=== PATIENT | female | born 1930 | race Caucasian/White ===

== ENCOUNTER 2019-04-03 09:55 | Inpatient (IN) ==
[2019-04-03 10:50] LABS: Basophils # (auto) 0.03 K/uL (0-0.2); Basophils % (auto) 0.5 %; Eosinophils # (auto) 0.04 K/uL (0-0.5); Eosinophils % (auto) 0.7 %; Hemoglobin 12.1 g/dL (12.0-16.0); Immature Granulocytes # (auto) 0.01 K/uL (0.00-0.02); Immature Granulocytes % (auto) 0.2 %; Lymphocytes # (auto) 1.27 K/uL (1.2-3.4); Mean Corpuscular Hemoglobin 30.8 pg (25-34); Mean Corpuscular Hgb Conc 32.7 g/dL (32-36); Mean Corpuscular Volume 94.1 fL (80-100); Mean Platelet Volume 11.7 fL (7.4-10.4); Monocytes # (auto) 0.38 K/uL (0.11-0.59); Monocytes % (auto) 6.9 %; Neutrophils % (auto) 68.7 %; Platelet Count 199 K/uL (130-400); RDW Coefficient of Variation 13.7 % (11.5-14.5); RDW Standard Deviation 47.7 fL (36.4-46.3); Red Blood Count 3.93 M/uL (4.2-5.4); White Blood Count 5.53 K/uL (4.8-10.8)
--- NOTE | 2019-04-03 10:53 | XRay Report ---
SINGLE VIEW CHEST CLINICAL HISTORY: GI bleeding. FINDINGS: An AP, portable, upright chest radiograph is compared to study dated 11/16/2010. The cardiom ediastinal silhouette is unremarkable. The lungs and pleural spaces are clear. No pneumothorax is see n. The skeletal structures are osteopenic. The bony thorax is grossly intact. Calcific tendinopathy i s noted in the left shoulder. Degenerative change is seen throughout the thoracic spine. IMPRESSION: No active disease in the chest. Electronically signed by: Travon Garcia M.D. 04/03/2019 10:52 AM
--- NOTE | 2019-04-03 10:55 | XRay Report ---
XR KUB/Abdomen 1 view CLINICAL HISTORY: Gastrointestinal hemorrhage COMPARISON STUDY: No previous studies for comparison. FINDINGS: There is no pathologic bowel dilatation. There are advanced degenerative changes present wi thin the lumbar spine. There are postsurgical changes of a total right hip arthroplasty. Central pelv ic calcifications are nonspecific likely reflecting calcifications within uterine fibroids. There are radiopaque densities projecting over the iliac crests which are likely located within the extra abdo nicol soft tissues. IMPRESSION: No evidence of pathologic bowel dilatation. Electronically signed by: Beau Aldridge M.D. 04/03/2019 10:53 AM
[2019-04-03 11:00] LABS: INR 1.1 (0.9-1.1); Partial Thromboplastin Ratio 0.9; Partial Thromboplastin Time 23.1 Seconds (21.0-31.0); Prothrombin Time 11.2 Seconds (9.0-12.0)
[2019-04-03 11:09] LABS: Alanine Aminotransferase 30 U/L (12-78); Albumin Level 3.6 gm/dl (3.4-5.0); Aspartate Aminotransferase 27 U/L (15-37); BUN Creatinine Ratio 22.4 (10-20); Blood Urea Nitrogen 16 mg/dl (7-18); Calcium 8.5 mg/dl (8.5-10.1); Carbon Dioxide 25 mmol/L (21-32); Chloride 110 mmol/L (98-107); Creatinine Clr Calc Pharmacy 55.3 ml/min; Est GFR (African American) 87.9; Est GFR (Non-African American) 75.8; Glucose 113 mg/dl (70-99); Lipase 110 U/L (73-393); Sodium 143 mmol/L (136-145)
[2019-04-03 11:14] LABS: Albumin Globulin Ratio 1.1 (0.9-2); Alkaline Phosphatase 56 U/L (45-117); Bilirubin,Total 0.5 mg/dl (0.2-1); Globulin 3.4 gm/dl (2.5-4.0); Troponin I < 0.015 ng/ml (0-0.045)
[2019-04-03] MEDS ORDERED: SODIUM CHLORIDE 0.9% 1000ML 1,000 ML IV SCH (11:30)
[2019-04-03] MEDS ORDERED: ONDANSETRON INJ 2 MG/ML 2 ML VIAL IV PRN (11:40)
[2019-04-03] MEDS ORDERED: ACETAMINOPHEN 325 MG TAB PO PRN (11:40)
--- NOTE | 2019-04-03 12:21 | History & Physical Report ---
Date of Service April 03, 2019 Assessment & Plan (1) Rectal bleed: Pt is 88 y/o F with PMH HTN, dyslipidemia, GERD, depression, obesity, chronic back pain, presented with complaint red bloody diarrhea x 7 episodes since last night. +sweats. Denies abdominal pain. Pt with no hx colonoscopy. In ER afebrile, P: 65, R: 18, BP: 137/75, 99% on RA. No leukocytosis, H/H: 12/37. KUB: No evidence of pathologic bowel dilatation. -Monitor -Stool culture, C-diff pending -Gentle IVF -Type and cross and hold -Monitor H&H -NPO -Hold aspirin -CBC, BMP in am -GI consult (2) HTN (hypertension): Stable -Hold lisinopril at this time (3) Dyslipidemia: -Hold simvastatin (4) Depression: -Hold duloxetine DVT Prophylaxis -SCDs DNR/DNI as per discussion with pt Follows with Dr Hartman for routine care Pt was seen and care coordinated with Dr Russo. See addendum History of Present Illness Chief Complaint: rectal bleeding Primary Care Provider: Jaimee Hartman MD Pt is 88 y/o F with PMH HTN, dyslipidemia, GERD, depression, obesity, chronic back pain, presented to ER with complaint of rectal bleeding. Patient states last night had onset of red bloody diarrhea x7 times. Reports abdominal cramping last night but denies any abdominal pain. Denies rectal pain. Denies hx constipation. Reports decreased appetite the past 3 days. Yesterday with some diaphoresis. Denies dizziness, syncope, CP, SOB. Denies history rectal bleeding in past. Denies history of colonoscopy in past. Patient reports is been taking 2 baby aspirin daily instead of 1 baby aspirin as she thought to would be better than one tablet. Denies other NSAID use. Denies fever, N/V, JONES, dizziness, syncope, vision changes, neck pain, CP, SOB, orthopnea, palpitations, cough, sore throat, choking, otalgia, rhinorrhea, paresthesias, weakness, extremity weakness, extremity edema, rashes, urinary symptoms. Denies recent falls. Denies recent travel. Allergies Allergy/AdvReac Type Severity Reaction Status Date / Time No Known Allergies Allergy Unverified 04/03/19 11:14 Home Medications Home Medications Medication Instructions Recorded Confirmed Type aspirin 81 mg PO DAILY 04/03/19 04/03/19 History duloxetine 20 mg PO DAILY 04/03/19 04/03/19 History lisinopril [Zestril] 20 mg PO QAM 04/03/19 04/03/19 History oxycodone-acetaminophen 1 tab PO HS PRN 04/03/19 04/03/19 History simvastatin 20 mg PO PM 04/03/19 04/03/19 History Past Med/Surg History Medical History GERD (gastroesophageal reflux disease) (Chronic) Obesity (Chronic) Chronic back pain (Chronic) Depression (Chronic) Dyslipidemia (Chronic) HTN (hypertension) (Chronic) Surgical History History of right hip replacement (Chronic) Family History Other Diabetes Social History Preferred Language: Luxembourgish Communication Ability: Effective Weight Count Operator Required: No Beliefs That Will Affect Care: None Current Living Situation: Alone Other Information That Helps Us Care for You: No Feels Safe at Home: Yes Safety Concerns: Feels Safe At This Time Smoking Status: Former smoker Do You Dip or Chew Tobacco: No ; Second Hand Exposure: No ; Tobacco Cessation Education Requested by Patient: No Hx Alcohol Use: No Hx Substance Use: No Review of Systems Review of Systems: All systems reviewed & are unremarkable except as noted in HPI & below Physical Exam Physical Exam: General: no distress, obese Head: normocephalic, atraumatic Eyes: PERRL, EOM's intact, conjunctiva non-injected, anicteric ENT: normal inspection external ears, nose, mucous membranes moist Neck: supple, trachea midline Lungs: clear, no respiratory distress, no wheezing/rhonchi/rales CV: RRR, no murmur, no pretibial edema Abd: normal BS, soft, non-tender Ext: no cyanosis, no calf tenderness Neuro: A&O x 3, no focal deficits noted, pleasant, normal affect Skin: warm, dry Results & Data Vital Signs (Past 12 Hours) Vital Signs Temp Pulse Resp BP Pulse Ox 04/03/19 12:00 79 18 148/81 H 04/03/19 11:31 73 24 134/60 96 04/03/19 11:01 65 20 128/70 96 04/03/19 10:39 66 94 04/03/19 09:57 36.6 C 65 18 137/75 99 04/03/19 09:56 63 19 137/75 94 Laboratory Results Short CBC 04/03/19 Range/Units 10:36 WBC 5.53 (4.8-10.8) K/uL Hgb 12.1 (12.0-16.0) g/dL Hct 37.0 (37-47) % Plt Count 199 (130-400) K/uL BMP 04/03/19 10:36 Sodium 143 Potassium 4.0 Chloride 110 H Carbon Dioxide 25 BUN 16 Creatinine 0.72 Glucose 113 H Calcium 8.5 Cardiac Enzymes 04/03/19 Range/Units 10:36 Troponin I < 0.015 (0-0.045) ng/ml Liver Function 04/03/19 Range/Units 10:36 Total Bilirubin 0.5 (0.2-1) mg/dl AST 27 (15-37) U/L ALT 30 (12-78) U/L Alkaline Phosphatase 56 (45-117) U/L Albumin 3.6 (3.4-5.0) gm/dl Diagnostic Findings CXR: IMPRESSION: No active disease in the chest. KUB XRAY: IMPRESSION: No evidence of pathologic bowel dilatation. Code Status & VTE Plan VTE Prophylaxis Plan VTE Prophylaxis will be ordered: Yes Supervising Physician Co-Signing Physician Notes I, Dr. Jason Russo, have seen and examined the patient with physician portfolio assistant and would like to comment that This is a 88 year old female who was sent to the ED by primary care doctor Dr. Hartman because of reports of blood diarrhea that started on 04/02/19 GASTROINTESTINAL BLEED -on admission Hgb of 12.1, there are no other recent outpatient or inpatient Hgb in comparison -give IV fluids, trend hemoglobin, active type and screen -send fecal occult blood, stool culture, c.difficile test with next bowel movements -hold home medications -keep NPO for now, request gastroenterology consult Patient discussed with attending physician of code status is DO NOT RESCUCITATE, DO NOT INTUBATE Patient denies of currently with a spouse or living biological family members. She reports that she has friends who can help her make medical decisions if needed such as Cristobal Chavarria ([phone]) Agree with other health issues as documented by physician portfolio assistant Physical Exam General/neuro: no acute distress, verbal, speaks in full sentences, alert and oriented, cooperative HEENT: normal external exam Eyes: extraocular movements intact Lungs: clear to auscultation, no wheezing Heart: regular rate, regular rhythm Abdomen-soft, nontender, positive bowel sound Extremities: no edema
[2019-04-03] MEDS ORDERED: SODIUM CHLORIDE 0.9% 250 ML IV PRN (13:16)
--- NOTE | 2019-04-03 13:29 | Gastrointestinal Consultation ---
Date of Consultation April 03, 2019 Assessment & Plan (1) GERD (gastroesophageal reflux disease): Ms. Leatha Perdomo is an 88 yr old female with black/red diarrhea, minimal abdominal pain, with a hx of GERD and aspirin use (usually 162mg/day). Differentials considered include UGI bleed from ulcers, gastritis, esophagitis, LGI bleed from ischemic colitis, diverticular disease and/or hemorrhoids (seen on exam). 1. Clear liquids po. 2. Stool for culture, C-diff, O&P. Attg add: I interviewed and examined pt, reviewed chart and labs. Pt with abrupt onset rectal bleeding without abd pain that appears to be tapering off. Her hgb is stable. Suspect ischemic colitis; she does not need abx, and does not want to pursue endoscopic w/u. Diet as tolerated, follow hgb daily and plan for d/c if hgb stable x 48 hours. Please call with questions, will sign off. Present on Admission?: Yes (2) Rectal bleed: Present on Admission?: Yes History of Present Illness Reason for Consultation: Bloody Diarrhea Requesting Physician: Dr. Russo Attending Physician: Jason Russo MD History of Present Illness Ms. Leatha Perdomo is an 88 yr old female pt of Dr. Hartman with a hx of HTN, hyperlipidemia, depression who presented to the ED today for blood diarrhea for which GI is consulted. She hasn't felt well for about a year, decreased appetite, sad due to the loss of her who 4 yrs ago, "living alone." She lost about 10lbs in the past 4 months. Yesterday, "out of the blue," bloody diarrhea began. When asked, she says the BM is black but the toilet bowel if "full of red," and there was red blood on the toilet paper too. With the bloody diarrhea, she has mild cramping but no significant abdominal pain. She takes two 81mg ASA/day. She reports about 6-8 of these BMs yesterday. This morning, "it felt like it (a BM) but nothing came out." She reports that some of the diarrhea was, Black and runny." She had a lot of sweating with these BMs but denies any nausea, vomitin g, lightheadedness, dizziness, CP or feeling faint. She lives alone. No children ("lost a little one"), and does not go to any social functions. She denies any sick contacts but sounds as though she has very little contact with other people. She does had a cat and the man who cuts her grass will feed the cat while she is here. She tells me that she would like us to,"stop the bleeding so I can go home." On exam, abdomen is soft, non tender, rectal exam with external hemorrhoids, brown stool with bright red blood in the rectal vault. On arrival, CXR, ABD x-ray normal. WBC 5, Hb 12.1, Hct 37. INR 1.1. Na 143, K 4, BUN 16, Cr 0.72. She has not had further BMs since arrival. She is awake, alert, oriented, able to ambulate to the bathroom independently. Of note, she tells me that she has, "bad reflux," that she, "lives on Tums," but she "does not want" EGD and colonoscopy. Allergies Allergy/AdvReac Type Severity Reaction Status Date / Time No Known Allergies Allergy Unverified 04/03/19 11:14 Home Medications Home Medications Medication Instructions Recorded Confirmed Type aspirin 81 mg PO DAILY 04/03/19 04/03/19 History duloxetine 20 mg PO DAILY 04/03/19 04/03/19 History lisinopril [Zestril] 20 mg PO QAM 04/03/19 04/03/19 History oxycodone-acetaminophen 1 tab PO HS PRN 04/03/19 04/03/19 History simvastatin 20 mg PO PM 04/03/19 04/03/19 History Patient History Medical History GERD (gastroesophageal reflux disease) (Chronic) Obesity (Chronic) Chronic back pain (Chronic) Depression (Chronic) Dyslipidemia (Chronic) HTN (hypertension) (Chronic) Surgical History History of right hip replacement (Chronic) Family History Other Diabetes Social History Preferred Language: Gibraltarian Communication Ability: Effective Welfare Centre Manager Required: No Beliefs That Will Affect Care: None Current Living Situation: Alone Other Information That Helps Us Care for You: No Feels Safe at Home: Yes Safety Concerns: Feels Safe At This Time Smoking Status: Former smoker Do You Dip or Chew Tobacco: No ; Second Hand Exposure: No ; Tobacco Cessation Education Requested by Patient: No Hx Alcohol Use: No Hx Substance Use: No Review of Systems Review of Systems: ROS: Gen: Denies weakness, fevers, weight loss Eyes: No eye redness, or pain, no recent vision changes Resp: No SOB, no cough Cardio: No palpitations/irregular beats, no chest pain GI: + mild abdominal cramping, +bloody diarrhea, no nausea/vomiting : Denies pain on urination Skin: No jaundice, itching or new rashes Physical Exam Constitutional: WD/WN, vitals as above Eyes: PERRL, conjunctivae normal, anicteric sclerae ENMT: external ear and nose normal, oropharynx normal Neck: trachea midline, no thyromegaly Respiratory: normal respiratory effort, lungs clear to auscultation Cardiovascular: RRR, no murmur, no edema Gastrointestinal (Abdomen): normal bowel sounds, soft, nontender, no hepatosplenomegaly Rectal exam with external hemorrhoids, there was brown loose stool with bright red blood in the rectal vault. Skin: no rashes, warm and dry Neurologic: PERRL, EOMI, accommodation nl, no face palsy, no dysarthria Psychiatric: A+Ox3, euthymic affect Lymphatic: no cervical or axillary lymphadenopathy Results & Data Vital Signs (Past 12 Hours) Vital Signs Temp Pulse Resp BP Pulse Ox 04/03/19 12:30 81 20 132/76 97 04/03/19 12:00 79 18 148/81 H 04/03/19 11:31 73 24 134/60 96 04/03/19 11:01 65 20 128/70 96 04/03/19 10:39 66 94 04/03/19 09:57 36.6 C 65 18 137/75 99 04/03/19 09:56 63 19 137/75 94 Laboratory Results See HPI Diagnostic Findings CXR and abd X-ray normal.
[2019-04-03] MEDS ORDERED: PNEUMOCOCCAL ADMINISTRATION CHARGE ONE (15:15)
[2019-04-03] MEDS ORDERED: INFLUENZA VACCINE HIGH DOSE 65+ 0.5 ML SYR IM ONE (15:15)
[2019-04-03] MEDS ORDERED: PNEUMOCOCCAL POLYSACCHARIDES 25 MCG/0.5 ML VIAL/SYR IM ONE (15:15)
[2019-04-03] MEDS ORDERED: INFLUENZA ADMINISTRATION CHARGE ONE (15:15)
--- NOTE | 2019-04-03 15:15 | Emergency Department Note ---
Entered by Piter Rubio acting as a scribe for History of Present Illness General Chief complaint: Rectal Bleed Source: patient History of Present Illness Provider complaint: Rectal bleed Onset (ago): day(s) 1 Location: buttocks Pain Consistency: + constant Relieved By: + none Exacerbated By: + none Associated symptoms: + denies other symptoms (Abdominal pain); no nausea/vomiting The patient is an 88 year old female who presents to the Emergency Room with complaints of constant rectal bleeding that started yesterday. The patient states the blood is bright red and has been present in every bowel movement since the onset. The patient saw her PCP this morning and was sent here for a further work up. The patient did not have a rectal exam done at her PCP's office. The patient has never had a colonoscopy nor has she ever had a blood transfusion. The patient is not on any blood thinners. She denies any abdominal pain, nausea, or vomiting. Home Medications Home Medications Medication Instructions Recorded Confirmed Type aspirin 81 mg PO DAILY 04/03/19 04/03/19 History duloxetine 20 mg PO DAILY 04/03/19 04/03/19 History lisinopril [Zestril] 20 mg PO QAM 04/03/19 04/03/19 History oxycodone-acetaminophen 1 tab PO HS PRN 04/03/19 04/03/19 History simvastatin 20 mg PO PM 04/03/19 04/03/19 History Allergies Allergy/AdvReac Type Severity Reaction Status Date / Time No Known Allergies Allergy Unverified 04/03/19 11:14 Past Med/Surg History Medical History GERD (gastroesophageal reflux disease) (Chronic) Obesity (Chronic) Chronic back pain (Chronic) Depression (Chronic) Dyslipidemia (Chronic) HTN (hypertension) (Chronic) Surgical History History of right hip replacement (Chronic) Family History Other Diabetes Social History Preferred Language: Spanish Communication Ability: Effective 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 and A total of 10 systems reviewed and were otherwise negative Physical Exam Vital Signs Vital Signs - 24 hr 04/03/19 09:56 04/03/19 09:57 04/03/19 10:39 Temperature 36.6 C Temperature Source Oral Sepsis Recent Fever Within 48 Hours No Sepsis New/Unexplained Change in Mental Status No Sepsis Action Taken by Nursing No Action Required Pulse Rate 63 65 66 Pulse Rate from SpO2 Sensor 61 Pulse Rhythm Regular Respiratory Rate 19 18 Respiratory Effort / Characteristics Non-Labored Spontaneous Respiratory Depth Normal Respiratory Pattern Regular Blood Pressure 137/75 137/75 Blood Pressure Mean 95 95 Blood Pressure Position Sitting Pulse Oximetry 94 99 94 Oxygen Delivery Method Room Air Room Air 04/03/19 11:01 04/03/19 11:31 04/03/19 12:00 Temperature Temperature Source Sepsis Recent Fever Within 48 Hours Sepsis New/Unexplained Change in Mental Status Sepsis Action Taken by Nursing Pulse Rate 65 73 79 Pulse Rate from SpO2 Sensor 66 72 Pulse Rhythm Respiratory Rate 20 24 18 Respiratory Effort / Characteristics Respiratory Depth Respiratory Pattern Blood Pressure 128/70 134/60 148/81 H Blood Pressure Mean 89 84 103 Blood Pressure Position Pulse Oximetry 96 96 Oxygen Delivery Method GENERAL: Patient is awake, alert, and in no acute distress.Patient is resting comfortably and showing no signs of anxiety EYES: The conjunctivae are clear. The pupils are round and reactive. EARS, NOSE, MOUTH AND THROAT: The nose is without any evidence of any deformity. Mucous membranes are moist.Tongue is midline NECK: The neck is nontender and supple. RESPIRATORY: Normal respiratory effort is noted. There is no evidence of wheezing rhonchi or rales to auscultation. CARDIOVASCULAR: Regular rate and rhythm noted. There no murmurs rubs or gallops normal S1 normal S2 GASTROINTESTINAL: The abdomen is soft. Bowel sounds are present in all quadrants. Abdomen is nontender. RECTAL: Gross blood noted. PELVIS: The Pelvis is stable. No tenderness to palpation is noted. MUSCULOSKELETAL/EXTREMITIES: There is no evidence of gross deformity. Full range of motion is noted in the hips and shoulders. SKIN: There is no obvious evidence of any rash. There are no petechiae, pallor or cyanosis noted. Trace pedal edema bilaterally. NEUROLOGIC: Patient is awake alert and oriented x3. Course 1024: Past medical records reviewed. The patient was evaluated in room B12B, and a complete history and physical examination were performed. 1115: I updated the patient on results and we discussed the treatment plan. She agreed with the plan. 1123: [facility] the patient's case. He will be accepting the patient for further evaluation. Consultations Consultation #1: I [facility] the patient's case. He will be accepting the patient for further evaluation. Time: 11:23 Administered Medications Discontinued Medications Sodium Chloride (Nss 1000ml) 1,000 mls @ 80 mls/hr IV .[id number] Stop: 05/03/19 11:29 Last Infusion: 04/03/19 17:53 Dose: 0 mls/hr Documented by: [id number] Admin: 04/03/19 14:09 Dose: 80 mls/hr Documented by: [id number] Medical Decision Making Differential Diagnosis Differential: Diverticulitis, AVM, Coagulopathy, Colitis, Malignancy, Upper GI bleed, Fissure, Hemorrhoids, amongst other pathologies entertained. Medical Records Attestation: I reviewed the patient's medical records. Home Medications Current Medication List: was personally reviewed by me Laboratory Data Attestation: I reviewed the patient's lab results. Result diagrams: 04/04/19 05:42 04/04/19 00:46 Lab Results 04/03/19 04/03/19 04/03/19 Range/Units 10:36 10:36 10:36 WBC 5.53 (4.8-10.8) K/uL RBC 3.93 L (4.2-5.4) M/uL Hgb 12.1 (12.0-16.0) g/dL Hct 37.0 (37-47) % MCV 94.1 (80-100) fL MCH 30.8 (25-34) pg MCHC 32.7 (32-36) g/dL RDW Std Deviation 47.7 H (36.4-46.3) fL RDW Coeff of Aruna 13.7 (11.5-14.5) % Plt Count 199 (130-400) K/uL MPV 11.7 H (7.4-10.4) fL Immature Gran % (Auto) 0.2 % Neut % (Auto) 68.7 % Lymph % (Auto) 23.0 % [place] % (Auto) 6.9 % Eos % (Auto) 0.7 % Baso % (Auto) 0.5 % Immature Gran # (Auto) 0.01 (0.00-0.02) K/uL Neut # (Auto) 3.80 (1.4-6.5) K/uL Lymph # (Auto) 1.27 (1.2-3.4) K/uL [place] # (Auto) 0.38 (0.11-0.59) K/uL Eos # (Auto) 0.04 (0-0.5) K/uL Baso # (Auto) 0.03 (0-0.2) K/uL PT 11.2 (9.0-12.0) Seconds INR 1.1 (0.9-1.1) APTT 23.1 (21.0-31.0) Seconds PTT Ratio 0.9 Sodium 143 (136-145) mmol/L Potassium 4.0 (3.5-5.1) mmol/L Chloride 110 H (98-107) mmol/L Carbon Dioxide 25 (21-32) mmol/L Anion Gap 8.0 (3-11) BUN 16 (7-18) mg/dl Creatinine 0.72 (0.6-1.2) mg/dl Est Cr Clr Drug Dosing 55.3 ml/min Est GFR ( Amer) 87.9 Est GFR (Non-Af Amer) 75.8 BUN/Creatinine Ratio 22.4 H (10-20) Glucose 113 H (70-99) mg/dl Calcium 8.5 (8.5-10.1) mg/dl Total Bilirubin 0.5 (0.2-1) mg/dl AST 27 (15-37) U/L ALT 30 (12-78) U/L Alkaline Phosphatase 56 (45-117) U/L Troponin I < 0.015 (0-0.045) ng/ml Total Protein 7.0 (6.4-8.2) gm/dl Albumin 3.6 (3.4-5.0) gm/dl Globulin 3.4 (2.5-4.0) gm/dl Albumin/Globulin Ratio 1.1 (0.9-2) Lipase 110 (73-393) U/L Blood Type Antibody Screen Crossmatch 04/03/19 Range/Units 10:36 WBC (4.8-10.8) K/uL RBC (4.2-5.4) M/uL Hgb (12.0-16.0) g/dL Hct (37-47) % MCV (80-100) fL MCH (25-34) pg MCHC (32-36) g/dL RDW Std Deviation (36.4-46.3) fL RDW Coeff of Aruna (11.5-14.5) % Plt Count (130-400) K/uL MPV (7.4-10.4) fL Immature Gran % (Auto) % Neut % (Auto) % Lymph % (Auto) % [place] % (Auto) % Eos % (Auto) % Baso % (Auto) % Immature Gran # (Auto) (0.00-0.02) K/uL Neut # (Auto) (1.4-6.5) K/uL Lymph # (Auto) (1.2-3.4) K/uL [place] # (Auto) (0.11-0.59) K/uL Eos # (Auto) (0-0.5) K/uL Baso # (Auto) (0-0.2) K/uL PT (9.0-12.0) Seconds INR (0.9-1.1) APTT (21.0-31.0) Seconds PTT Ratio Sodium (136-145) mmol/L Potassium (3.5-5.1) mmol/L Chloride (98-107) mmol/L Carbon Dioxide (21-32) mmol/L Anion Gap (3-11) BUN (7-18) mg/dl Creatinine (0.6-1.2) mg/dl Est Cr Clr Drug Dosing ml/min Est GFR ( Amer) Est GFR (Non-Af Amer) BUN/Creatinine Ratio (10-20) Glucose (70-99) mg/dl Calcium (8.5-10.1) mg/dl Total Bilirubin (0.2-1) mg/dl AST (15-37) U/L ALT (12-78) U/L Alkaline Phosphatase (45-117) U/L Troponin I (0-0.045) ng/ml Total Protein (6.4-8.2) gm/dl Albumin (3.4-5.0) gm/dl Globulin (2.5-4.0) gm/dl Albumin/Globulin Ratio (0.9-2) Lipase (73-393) U/L Blood Type A Positive Antibody Screen NEGATIVE Crossmatch See Detail Imaging Data Radiologist's Impression: Radiology results as stated below per my review and the radiologist's interpretation: SINGLE VIEW CHEST CLINICAL HISTORY: GI bleeding. FINDINGS: An AP, portable, upright chest radiograph is compared to study dated 11/16/2010. The cardiomediastinal silhouette is unremarkable. The lungs and pleural spaces are clear. No pneumothorax is seen. The skeletal structures are osteopenic. The bony thorax is grossly intact. Calcific tendinopathy is noted in the left shoulder. Degenerative change is seen throughout the thoracic spine. IMPRESSION: No active disease in the chest. Electronically signed by: Travon Garcia M.D. 04/03/2019 10:52 AM XR KUB/Abdomen 1 view CLINICAL HISTORY: Gastrointestinal hemorrhage COMPARISON STUDY: No previous studies for comparison. FINDINGS: There is no pathologic bowel dilatation. There are advanced degenerative changes present within the lumbar spine. There are postsurgical changes of a total right hip arthroplasty. Central pelvic calcifications are no nspecific likely reflecting calcifications within uterine fibroids. There are radiopaque densities projecting over the iliac crests which are likely located within the extra abdominal soft tissues. IMPRESSION: No evidence of pathologic bowel dilatation. Electronically signed by: Beau Aldridge M.D. 04/03/2019 10:53 AM ECG Data Attestation: I personally reviewed and interpreted this ECG as follows: Indication: other (Rectal bleed) Rate (beats per minute): 65 Rhythm: normal sinus Findings: + RBBB; no PVC Comparison ECG Date: from (06/22/11) Change: the following changes noted (RBBB is new) Blood Pressure Blood Pressure Findings: Elevated blood pressure Blood Pressure Disposition: further management by hospitalist JHONY Esqueda The patient is an 88-year-old female who presented to the emergency department for an evaluation of GI bleeding. The patient had gross blood per rectum. Initially her vital signs were stable and her hemoglobin was stable as well. Given the amount of bleeding the patient was referred to the on-call [facility] hospitalist group. They have agreed to evaluate the patient in the emergency department for further management disposition. I discussed the patient's laboratory and radiographic studies with her. Impression & Plan Rectal bleed Discharge Plan Visit Data *Final* Discharge Date/Time: 04/03/19 13:05 Chief Complaint: Rectal Bleed ED Provider: Bashir Ren Discharge Problem: Rectal bleed Patient Disposition: Admitted As Inpatient Discharge Instructions Interventions: ED Discharge Assessment Last Done: 04/03/19 13:05 The scribe's documentation has been prepared under my direction and personally reviewed by me in its entirety. I confirm that the note above accurately reflects all work, treatment, procedures, and medical decision making performed by me.
[2019-04-03 16:55] LABS: Appearance Urine Clear (Clear); Bacteria Urine Automated Negative (Negative); Bilirubin Urine Negative (Negative); Blood Urine 3+ (Negative); Color Urine Yellow; Epithelial Cell Urine Auto 20-30 /lpf (0-5); Glucose Urine UA Negative (Negative); Ketones Urine 1+ (Negative); Leukocyte Esterase Urine Trace (Negative); Nitrite Urine Negative (Negative); Protein Urine Negative (Negative); RBC Urine Automated 0-4 /hpf (0-4); Specific Gravity Urine 1.026 (1.000-1.030); Urobilinogen Urine Negative (Negative)
[2019-04-03 17:11] LABS: Basophils # (auto) 0.04 K/uL (0-0.2); Basophils % (auto) 0.8 %; Eosinophils # (auto) 0.05 K/uL (0-0.5); Eosinophils % (auto) 0.9 %; Hematocrit (blood only) 33.9 % (37-47); Hemoglobin 11.2 g/dL (12.0-16.0); Lymphocytes # (auto) 1.63 K/uL (1.2-3.4); Lymphocytes % (auto) 30.6 %; Mean Corpuscular Hemoglobin 30.9 pg (25-34); Mean Corpuscular Volume 93.4 fL (80-100); Mean Platelet Volume 11.9 fL (7.4-10.4); Monocytes # (auto) 0.56 K/uL (0.11-0.59); Monocytes % (auto) 10.5 %; Neutrophils # (auto) 3.05 K/uL (1.4-6.5); Neutrophils % (auto) 57.2 %; Platelet Count 194 K/uL (130-400); RDW Coefficient of Variation 13.9 % (11.5-14.5); RDW Standard Deviation 47.6 fL (36.4-46.3); Red Blood Count 3.63 M/uL (4.2-5.4); White Blood Count 5.33 K/uL (4.8-10.8)
[2019-04-04 00:53] LABS: Basophils # (auto) 0.05 K/uL (0-0.2); Basophils % (auto) 0.9 %; Eosinophils # (auto) 0.15 K/uL (0-0.5); Eosinophils % (auto) 2.8 %; Hematocrit (blood only) 32.2 % (37-47); Hemoglobin 10.6 g/dL (12.0-16.0); Immature Granulocytes # (auto) 0.01 K/uL (0.00-0.02); Immature Granulocytes % (auto) 0.2 %; Lymphocytes # (auto) 1.68 K/uL (1.2-3.4); Lymphocytes % (auto) 30.9 %; Mean Corpuscular Hemoglobin 30.7 pg (25-34); Mean Corpuscular Hgb Conc 32.9 g/dL (32-36); Mean Corpuscular Volume 93.3 fL (80-100); Mean Platelet Volume 11.7 fL (7.4-10.4); Monocytes # (auto) 0.53 K/uL (0.11-0.59); Monocytes % (auto) 9.7 %; Neutrophils # (auto) 3.02 K/uL (1.4-6.5); Neutrophils % (auto) 55.5 %; Platelet Count 177 K/uL (130-400); RDW Coefficient of Variation 13.9 % (11.5-14.5); RDW Standard Deviation 47.7 fL (36.4-46.3); Red Blood Count 3.45 M/uL (4.2-5.4); White Blood Count 5.44 K/uL (4.8-10.8)
[2019-04-04 01:10] LABS: Albumin Level 3.2 gm/dl (3.4-5.0); BUN Creatinine Ratio 22.6 (10-20); Calcium 8.1 mg/dl (8.5-10.1); Creatinine Clr Calc Pharmacy 64.2 ml/min; Est GFR (African American) 94.6; Est GFR (Non-African American) 81.6; Potassium 3.7 mmol/L (3.5-5.1)
[2019-04-04 01:13] LABS: Albumin Globulin Ratio 1.1 (0.9-2); Bilirubin,Total 0.6 mg/dl (0.2-1); Globulin 2.8 gm/dl (2.5-4.0)
[2019-04-04 06:21] LABS: Hematocrit (blood only) 32.1 % (37-47); Hemoglobin 10.6 g/dL (12.0-16.0); Mean Corpuscular Hemoglobin 31.5 pg (25-34); Mean Corpuscular Volume 95.3 fL (80-100); Mean Platelet Volume 11.7 fL (7.4-10.4); Platelet Count 165 K/uL (130-400); RDW Coefficient of Variation 13.8 % (11.5-14.5); RDW Standard Deviation 47.8 fL (36.4-46.3); Red Blood Count 3.37 M/uL (4.2-5.4); White Blood Count 6.16 K/uL (4.8-10.8)
[2019-04-04 06:52] LABS: BUN Creatinine Ratio 21.5 (10-20); Calcium 7.7 mg/dl (8.5-10.1); Creatinine Clr Calc Pharmacy 64.5 ml/min; Est GFR (African American) 95.1; Est GFR (Non-African American) 82.1; Potassium 3.8 mmol/L (3.5-5.1)
--- NOTE | 2019-04-04 10:58 | Hospitalist Progress Note ---
Date of Service April 04, 2019 Assessment & Plan (1) Rectal bleed: This is a 88 year old female who was sent to the ED by primary care doctor Dr. Hartman because of reports of bloody diarrhea (7 episodes) that started on 04/02/19 GASTROINTESTINAL BLEED -on admission Hgb of 12.1 on 04/03/19, there are no other recent outpatient or inpatient Hgb in comparison -was given IV fluids -Hemoglobin appears to be stablizing as 10.6 -gastroenterology has evaluated the patient on this hospital stay and no recommendations for colonoscopy at this time -cause of bleed suspected to be ischemic colitis as per gastronenterology service -off IV fluids, and switch from clear liquids to full liquid diet on 04/04/19 -have ordered fecal occult blood, stool culture, c.difficile test with next bowel movement but no available sample to be sent at this time -hold aspirin, avoid NSAIDs (2) HTN (hypertension): -off lisinopril, continue to hold (3) Dyslipidemia: -Hold simvastatin (4) Depression: -can continue home dose duloxetine DVT Prophylaxis -SCDs Patient discussed with attending physician of code status is DO NOT resuscitate, DO NOT INTUBATE Patient denies of currently with a spouse or living biological family members. She reports that she has friends who can help her make medical decisions if needed such as Cristobal Chavarria ([phone]) Subjective Overnight, patient had episode of tachycardia but was asymptomatic. She reports that she has not been having any gross bowel movements recently since being . no abdomen pain. no vomiting. no chest pain. no shortness of breath. no dizziness. no lightheadedness. Physical Exam Constitutional: WD/WN, vitals as above Eyes: EOM intact bilaterally ENMT: external ear and nose normal, oropharynx normal Neck: trachea midline, no thyromegaly normal visual inspection Respiratory: normal respiratory effort, lungs clear to auscultation Cardiovascular: RRR, no murmur, no edema Gastrointestinal (Abdomen): normal bowel sounds, soft, nontender, no hepatosplenomegaly Musculoskeletal: Head/Neck/Chest: normocephalic and head atraumatic Neurologic: PERRL, EOMI, accommodation nl, no face palsy, no dysarthria CN's II-XI intact bilaterally Psychiatric: A+Ox3, euthymic affect Results & Data Vital Signs (Past 12 Hours) Vital Signs Temp Pulse Pulse Resp BP Pulse Ox 04/04/19 07:40 36.6 C 67 18 112/75 96 04/04/19 04:36 36.4 C L 76 20 149/75 H 95 04/03/19 23:52 72 04/03/19 23:20 36.7 C 77 17 117/63 93
[2019-04-04] MEDS: DULOXETINE HCL 20 MG CAP PO SCH (12:39)
[2019-04-04] MEDS ORDERED: SIMVASTATIN 20 MG TAB PO SCH (21:00)
[2019-04-05 04:30] VITALS: O2SAT 96
[2019-04-05 06:40] LABS: Basophils # (auto) 0.06 K/uL (0-0.2); Basophils % (auto) 1.1 %; Eosinophils # (auto) 0.28 K/uL (0-0.5); Eosinophils % (auto) 5.1 %; Hemoglobin 10.2 g/dL (12.0-16.0); Immature Granulocytes # (auto) 0.01 K/uL (0.00-0.02); Immature Granulocytes % (auto) 0.2 %; Lymphocytes # (auto) 1.34 K/uL (1.2-3.4); Lymphocytes % (auto) 24.6 %; Mean Corpuscular Hemoglobin 31.1 pg (25-34); Mean Corpuscular Hgb Conc 32.9 g/dL (32-36); Mean Corpuscular Volume 94.5 fL (80-100); Monocytes # (auto) 0.45 K/uL (0.11-0.59); Monocytes % (auto) 8.3 %; Neutrophils # (auto) 3.31 K/uL (1.4-6.5); Neutrophils % (auto) 60.7 %; Platelet Count 161 K/uL (130-400); RDW Coefficient of Variation 13.7 % (11.5-14.5); RDW Standard Deviation 47.4 fL (36.4-46.3); Red Blood Count 3.28 M/uL (4.2-5.4); White Blood Count 5.45 K/uL (4.8-10.8)
[2019-04-05 07:11] VITALS: TEMP 98.4
[2019-04-05] MEDS: DULOXETINE HCL 20 MG CAP PO SCH (08:17)
--- NOTE | 2019-04-05 10:50 | Hospitalist Progress Note ---
Date of Service April 05, 2019 Assessment & Plan (1) Rectal bleed: This is a 88 year old female who was sent to the ED by primary care doctor Dr. Hartman because of reports of bloody diarrhea (7 episodes) that started on 04/02/19 c -on admission Hgb of 12.1 on 04/03/19, there are no other recent outpatient or inpatient Hgb in comparison -was given IV fluids -Hemoglobin appears to be stabilized to 10.6 on 04/04/19 with positive fecal occult blood stool -gastroenterology has evaluated the patient on this hospital stay and no recommendations for colonoscopy at this time -cause of bleed suspected to be ischemic colitis as per gastronenterology service -patient was transitioned for liquid diet to regular diet during hospital stay -Hgb is 10.2 on 04/05/19 and patient has not had any gross bleeding from rectum to date during hospital stay -C.difficile test is negative on 04/05/10, stool cultures are pending Discharge Instructions -Patient is asked to avoid aspirin or nonsteroidal antiinflammatory drugs (NSAIDs) such as ibuprofen, or Motrin brand, or Aleve brand -Patient should follow up with primary care doctor for repeat blood counts 04/10/2019 1:00 PM Provider Jaimee Hartman MD Department Internal Medicine [facility] -Patient has gastroenterology clinic appointment 05/07/2019 2:00 PM Provider ELIDA Adkins Department Gastroenterology, [facility] -If patient has a lot of bleeding from the bowel movements, or experience symptoms like severe lightheadedness, severe shortness of breath, then patient should go to emergency room for evaluation (2) HTN (hypertension): -can resume lisinopril at home for discharge (3) Dyslipidemia: -can resume simvastatin on discharge (4) Depression: -can continue home dose duloxetine DVT Prophylaxis: SCDs while in the hospital, ambulation Patient discussed with attending physician of code status is DO NOT resuscitate, DO NOT INTUBATE Patient denies of currently with a spouse or living biological family members. She reports that she has friends who can help her make medical decisions if needed such as Cristobal Chavarria ([phone]) Subjective No gross rectal bleed. no abdomen pain. no shortness of breath. no dizziness. no headache. no lightheadedness. no palpitations. no vomiting. patient is ambulating. discharge instructions discussed at length Physical Exam Constitutional: WD/WN, vitals as above Eyes: EOM intact bilaterally ENMT: external ear and nose normal, oropharynx normal Neck: trachea midline, no thyromegaly normal visual inspection Respiratory: normal respiratory effort, lungs clear to auscultation Cardiovascular: RRR, no murmur, no edema Gastrointestinal (Abdomen): normal bowel sounds, soft, nontender, no hepatosplenomegaly Musculoskeletal: Head/Neck/Chest: normocephalic and head atraumatic Neurologic: PERRL, EOMI, accommodation nl, no face palsy, no dysarthria CN's II-XI intact bilaterally Psychiatric: A+Ox3, euthymic affect Results & Data Vital Signs (Past 12 Hours) Vital Signs Temp Pulse Pulse Pulse Resp BP Pulse Ox 04/05/19 07:11 36.9 C 73 18 143/74 H 96 04/05/19 04:29 36.5 C 74 16 147/80 H 96 04/05/19 01:42 72 04/04/19 23:02 36.6 C 80 18 147/83 H 95
[2019-04-05 11:02] VITALS: BP 155/81; PULSE 80
--- NOTE | 2019-04-05 11:02 | Discharge Summary ---
Date of Service April 05, 2019 Admission HPI Per Admitting Provider Pt is 88 y/o F with PMH HTN, dyslipidemia, GERD, depression, obesity, chronic back pain, presented to ER with complaint of rectal bleeding. Patient states last night had onset of red bloody diarrhea x7 times. Reports abdominal cramping last night but denies any abdominal pain. Denies rectal pain. Denies hx constipation. Reports decreased appetite the past 3 days. Yesterday with some diaphoresis. Denies dizziness, syncope, CP, SOB. Denies history rectal bleeding in past. Denies history of colonoscopy in past. Patient reports is been taking 2 baby aspirin daily instead of 1 baby aspirin as she thought to w ould be better than one tablet. Denies other NSAID use. Denies fever, N/V, JONES, dizziness, syncope, vision changes, neck pain, CP, SOB, orthopnea, palpitations, cough, sore throat, choking, otalgia, rhinorrhea, paresthesias, weakness, extremity weakness, extremity edema, rashes, urinary symptoms. Denies recent falls. Denies recent travel. Admission Exam Per Admitting Provider General: no distress, obese Head: normocephalic, atraumatic Eyes: PERRL, EOM's intact, conjunctiva non-injected, anicteric ENT: normal inspection external ears, nose, mucous membranes moist Neck: supple, trachea midline Lungs: clear, no respiratory distress, no wheezing/rhonchi/rales CV: RRR, no murmur, no pretibial edema Abd: normal BS, soft, non-tender Ext: no cyanosis, no calf tenderness Neuro: A&O x 3, no focal deficits noted, pleasant, normal affect Skin: warm, dry Principal Diagnosis GASTROINTESTINAL BLEED Discharge Exam Constitutional WD/WN, vitals as above Eyes EOM intact bilaterally ENMT external ear and nose normal, oropharynx normal Neck trachea midline, no thyromegaly normal visual inspection Respiratory normal respiratory effort, lungs clear to auscultation Cardiovascular RRR, no murmur, no edema Gastrointestinal (Abdomen) normal bowel sounds, soft, nontender, no hepatosplenomegaly Musculoskeletal Head/Neck/Chest: normocephalic and head atraumatic Neurologic PERRL, EOMI, accommodation nl, no face palsy, no dysarthria CN's II-XI intact bilaterally Psychiatric A+Ox3, euthymic affect Discharge Data Allergies Allergy/AdvReac Type Severity Reaction Status Date / Time No Known Allergies Allergy Unverified 04/03/19 11:14 Consultations 04/03/19 11:23 ED Decision to Admit Stat 04/03/19 11:31 Consult Gastroenterology Routine 04/03/19 13:16 Consult Case Management - Discharge Planning Routine Hospital Course (1) Rectal bleed: This is a 88 year old female who was sent to the ED by primary care doctor Dr. Hartman because of reports of bloody diarrhea (7 episodes) that started on 04/02/19 c -on admission Hgb of 12.1 on 04/03/19, there are no other recent outpatient or inpatient Hgb in comparison -was given IV fluids -Hemoglobin appears to be stabilized to 10.6 on 04/04/19 with positive fecal occult blood stool -gastroenterology has evaluated the patient on this hospital stay and no recommendations for colonoscopy at this time -cause of bleed suspected to be ischemic colitis as per gastronenterology service -patient was transitioned for liquid diet to regular diet during hospital stay -Hgb is 10.2 on 04/05/19 and patient has not had any gross bleeding from rectum to date during hospital stay -C.difficile test is negative on 04/05/10, stool cultures are pending Discharge Instructions -Patient is asked to avoid aspirin or nonsteroidal antiinflammatory drugs (NSAIDs) such as ibuprofen, or Motrin brand, or Aleve brand -Patient should follow up with primary care doctor for repeat blood counts 04/10/2019 1:00 PM Provider Jaimee Hartman MD Department Internal Medicine [facility] -Patient has gastroenterology clinic appointment 05/07/2019 2:00 PM Provider ELIDA Adkins Department Gastroenterology, [facility] -If patient has a lot of bleeding from the bowel movements, or experience symptoms like severe lightheadedness, severe shortness of breath, then patient should go to emergency room for evaluation (2) HTN (hypertension): -can resume lisinopril at home for discharge (3) Dyslipidemia: -can resume simvastatin on discharge (4) Depression: -can continue home dose duloxetine DVT Prophylaxis: SCDs while in the hospital, ambulation Patient discussed with attending physician of code status is DO NOT resuscitate, DO NOT INTUBATE Patient denies of currently with a spouse or living biological family members. She reports that she has friends who can help her make medical decisions if needed such as Cristobal Chavarria ([phone]) Total Time Total Time Spent Total Time Spent (In Minutes): 40 minutes Total Time Includes: Examination of the Patient, Discharge Planning, Medication Reconciliation and Communication With Other Providers Discharge Plan Discharge Items Patient Disposition: Home - Self-Care Reason For Visit: RECTAL BLEEDING Discharge Diagnosis: GASTROINTESTINAL BLEED Condition on Discharge: Good Activity: Resume your previous activity Non-emergency contact: Primary Care Provider and Assistant Director Of [employer] Call non-emergency contact if: you have any medication questions Follow-up/Referrals: Jaimee Hartman MD [Primary Care Provider] - Diet: Regular Addtl Attending Provider Instructions: Discharge Instructions -Patient is asked to avoid aspirin or nonsteroidal antiinflammatory drugs (NSAIDs) such as ibuprofen, or Motrin brand, or Aleve brand -Patient should follow up with primary care doctor for repeat blood counts 04/10/2019 1:00 PM Provider Jaimee Hartman MD Department Internal Medicine [facility] -Patient has gastroenterology clinic appointment 05/07/2019 2:00 PM Provider ELIDA Adkins Department Gastroenterology, [facility] -If patient has a lot of bleeding from the bowel movements, or experience symptoms like severe lightheadedness, severe shortness of breath, then patient should go to emergency room for evaluation Addtl [employer] Provider Instructions: This is a 88 year old female who was sent to the ED by primary care doctor Dr. Hartman because of reports of bloody diarrhea (7 episodes) that started on 04/02/19 GASTROINTESTINAL BLEED -on admission Hgb of 12.1 on 04/03/19, there are no other recent outpatient or inpatient Hgb in comparison -was given IV fluids -Hemoglobin appears to be stabilized to 10.6 on 04/04/19 with positive fecal occult blood stool -gastroenterology has evaluated the patient on this hospital stay and no recommendations for colonoscopy at this time -cause of bleed suspected to be ischemic colitis as per gastronenterology service -patient was transitioned for liquid diet to regular diet during hospital stay -Hgb is 10.2 on 04/05/19 and patient has not had any gross bleeding from rectum to date during hospital stay -C.difficile test is negative on 04/05/10, stool cultures are pending Pending Studies at Discharge: Yes Studies:: stool cultures Stand-Alone Forms: My [facility] Medications and DC Order Prescriptions: Continued lisinopril [Zestril] 20 mg Tablet 20 mg PO QAM RF: 0 oxycodone-acetaminophen 5-325 mg Tablet 1 tab PO HS PRN (Reason: Pain) RF: 0 simvastatin 20 mg Tablet 20 mg PO PM RF: 0 duloxetine 20 mg Capsule,Delayed Release(Dr/Ec) 20 mg PO DAILY RF: 0 Discontinued aspirin 81 mg Tablet,Chewable 81 mg PO DAILY RF: 0 Discharge Orders: Discharge Order (Routine); Ordered 04/05/19 Ordered By: Jason Russo Admission Data Admit Date/Time: 04/03/19 12:13 Attending Provider: Jason Russo Admit Provider: Jason Russo Primary Care Provider: Jaimee Hartman Other Providers: Marshal Hernandez ; aJson Russo
== END 2019-04-05 11:30 | disposition home or self-care (01) | DRG 394 ==
LOC: ED 09:55 → 2N 12:13